=== PATIENT | male | born 1955 | race Caucasian/White ===

== ENCOUNTER 2016-08-04 10:19 | Inpatient (IN) | payer OTHER ==
[~2016-08-04] VITALS: Ht 175.3 cm; Wt 73.1 kg
[~2016-08-04 10:19] MED LIST: ASPI500T19 PO; CARV3.1262 PO; FURO-152 PO; LISI10TA7 PO
[2016-08-04 13:40] LABS: BASOPHILS # (AUTO) 0.02 K/uL (0.00-0.20); BASOPHILS % (AUTO) 0.3 % (0.0-2.0); EOSINOPHILS # (AUTO) 0.06 K/uL (0.00-0.70); EOSINOPHILS % (AUTO) 1.08 % (1.0-6.0); HEMOGLOBIN 14.1 g/dL (13.5-17.5); LYMPHOCYTES # (AUTO) 0.5 K/uL (1.0-4.8); LYMPHOCYTES % (AUTO) 9.1 % (22.0-44.0); MEAN CORPUSCULAR HEMOGLOBIN 29.1 pg (26.0-34.0); MEAN CORPUSCULAR HGB CONC 32.8 G/dL (31.0-37.0); MEAN CORPUSCULAR VOLUME 89 fL (80-100); MONOCYTES # (AUTO) 0.6 K/uL (0.1-1.0); MONOCYTES % (AUTO) 10.4 % (2.0-9.0); NEUTROPHILS # (AUTO) 4.6 K/uL (1.8-7.7); NEUTROPHILS % (AUTO) 79.1 % (40.0-70.0); PLATELET COUNT (AUTO) 247 K/uL (150-450); RED BLOOD CELL COUNT(AUTO) 4.85 MIL/uL (4.50-5.90); RED CELL DISTRIBUTION WIDTH 19.1 % (11.5-14.5); WHITE BLOOD COUNT (AUTO) 5.8 K/uL (4.5-11.0)
[2016-08-04 13:46] LABS: RBC MORPHOLOGY COMMENT ABNORMAL RBC MORPH
[2016-08-04 13:51] LABS: INR 1.4 (0.9-1.1); PROTHROMBIN TIME 14.6 SEC (9.4-11.6)
[2016-08-04 14:00] LABS: ANION GAP 12 mmol/L (8-16); CARBON DIOXIDE 27 mmol/L (22-29); CHLORIDE 99 mmol/L (98-107); GLOMERULAR FILTR. RATE CALC > 60 mL/min (>60); SODIUM SERUM 138 mmol/L (136-145); UREA NITROGEN, BLOOD 18 mg/dL (7-18)
[2016-08-04 14:03] LABS: B-TYPE NATRIURETIC PEPTIDE 1290 pg/mL (0-100)
[2016-08-04 14:26] LABS: ALANINE AMINOTRANSFERASE 31 U/L (12-78); ALBUMIN 2.4 g/dL (3.4-5.0); ASPARTATE AMINOTRANSFERASE 38 U/L (15-37); BILIRUBIN,TOTAL 2.6 mg/dL (0.1-1.0); CREATINE KINASE MB 2.7 ng/mL (0-5); CREATINE KINASE, TOTAL 124 U/L (39-308); TOTAL PROTEIN, SERUM 6.8 g/dL (6.4-8.2)
[2016-08-04] MEDS ORDERED: FUROSEMIDE 40 MG/4 ML VIAL IVP ONE (16:15)
[2016-08-04] MEDS ORDERED: POTASSIUM CHLORIDE 20 MEQ ER TABLET PO ONE ×2 (16:30)
[2016-08-04] MEDS ORDERED: ONDANSETRON HCL 4 MG/2 ML VIAL IVP PRN (16:45)
[2016-08-04] MEDS ORDERED: ACETAMINOPHEN 325 MG TABLET PO PRN (16:45)
[2016-08-04] MEDS ORDERED: 0.9% SODIUM CHLORIDE 10 ML SYRINGE IVP PRN (16:45)
[2016-08-04 17:13] LABS: APPEARANCE,URINE CLEAR (CLEAR); GLUCOSE, URINE (UA) NEGATIVE (NEGATIVE); KETONES,URINE NEGATIVE (NEGATIVE); LEUKOCYTE ESTERASE ,URINE NEGATIVE (NEGATIVE); OCCULT BLOOD,URINE NEGATIVE (NEGATIVE); PROTEIN,URINE NEGATIVE (NEGATIVE)
[2016-08-04 17:15] LABS: ADD UA MICROSCOPIC NO
[2016-08-04 20:18] VITALS: BP 118/73
[2016-08-04 23:25] VITALS: BP 118/69
[2016-08-05] MEDS ORDERED: MORPHINE SULFATE 2 MG/ML SYRINGE IVP PRN
[2016-08-05] MEDS ORDERED: ACETAMINOPHEN 325 MG TABLET PO PRN
[2016-08-05] MEDS ORDERED: HYDROCODONE/ACETAMINOPHEN 5-325 MG TABLET PO PRN
[2016-08-05] MEDS ORDERED: ONDANSETRON HCL 4 MG/2 ML VIAL IVP PRN
[2016-08-05] MEDS: HEPARIN SODIUM,PORCINE 5,000 UNITS/ML VIAL SQ SCH ×4 (03:05→23:10)
[2016-08-05 04:30] VITALS: BP 115/73
[2016-08-05 07:12] VITALS: BP 99/72
[2016-08-05] MEDS: FUROSEMIDE 20 MG/2 ML VIAL IVP SCH ×3 (08:54→21:14)
[2016-08-05] MEDS: LISINOPRIL 20 MG TABLET PO SCH (08:57)
[2016-08-05] MEDS: CARVEDILOL 3.125 MG TABLET PO SCH ×2 (09:09→21:16)
[2016-08-05] MEDS: DOCUSATE SODIUM 100 MG CAPSULE PO SCH ×2 (09:09→21:16)
[2016-08-05] MEDS: PANTOPRAZOLE SODIUM 40 MG/VIAL IVP SCH (09:10)
[2016-08-05 11:13] VITALS: BP 94/74
[2016-08-05 15:24] LABS: BASOPHILS % (AUTO) 1.2 % (0.0-2.0); EOSINOPHILS % (AUTO) 0.9 % (1.0-6.0); HEMATOCRIT 44.1 % (41-53); HEMOGLOBIN 14.1 g/dL (13.5-17.5); LYMPHOCYTES # (AUTO) 0.6 K/uL (1.0-4.8); LYMPHOCYTES % (AUTO) 12.1 % (22.0-44.0); MEAN CORPUSCULAR HEMOGLOBIN 28.6 pg (26.0-34.0); MEAN CORPUSCULAR HGB CONC 31.9 G/dL (31.0-37.0); MEAN CORPUSCULAR VOLUME 90 fL (80-100); MONOCYTES # (AUTO) 0.7 K/uL (0.1-1.0); MONOCYTES % (AUTO) 13.1 % (2.0-9.0); NEUTROPHILS # (AUTO) 3.8 K/uL (1.8-7.7); NEUTROPHILS % (AUTO) 72.7 % (40.0-70.0); PLATELET COUNT (AUTO) 259 K/uL (150-450); RED BLOOD CELL COUNT(AUTO) 4.92 MIL/uL (4.50-5.90); RED CELL DISTRIBUTION WIDTH 18.2 % (11.5-14.5); WHITE BLOOD COUNT (AUTO) 5.3 K/uL (4.5-11.0)
[2016-08-05 16:27] LABS: ANION GAP 14 mmol/L (8-16); CALCIUM, TOTAL 8.4 mg/dL (8.8-10.5); CARBON DIOXIDE 23 mmol/L (22-29); CHLORIDE 99 mmol/L (98-107); CREATININE 1.12 mg/dL (0.60-1.30); GLOMERULAR FILTR. RATE CALC > 60 mL/min (>60); POTASSIUM 3.9 mmol/L (3.5-5.1); SODIUM SERUM 136 mmol/L (136-145); UREA NITROGEN, BLOOD 19 mg/dL (7-18)
[2016-08-05 16:32] LABS: ALANINE AMINOTRANSFERASE 31 U/L (12-78); ALBUMIN 2.3 g/dL (3.4-5.0); ASPARTATE AMINOTRANSFERASE 36 U/L (15-37); BILIRUBIN,TOTAL 2.5 mg/dL (0.1-1.0); TOTAL PROTEIN, SERUM 6.5 g/dL (6.4-8.2)
[2016-08-05 16:36] VITALS: BP 108/68
[2016-08-05] MEDS ORDERED: PHYTONADIONE 10 MG/1 ML AMP SQ ONE (16:45)
[2016-08-05] MEDS: ALBUTEROL SULFATE 2.5 MG/0.5 ML NEB SOLUTION NEB PRN ×2 (17:32→21:37)
[2016-08-05] MEDS: IPRATROPIUM BROMIDE 0.5 MG/2.5 ML NEB SOLUTION NEB PRN ×2 (17:32→21:37)
[2016-08-05] MEDS: ZOLPIDEM TARTRATE 5 MG TABLET PO PRN (23:13)
[2016-08-06] VITALS (7 sets, daily range): BP systolic 100–134; BP diastolic 59–86
[2016-08-06] MEDS: HEPARIN SODIUM,PORCINE 5,000 UNITS/ML VIAL SQ SCH ×2 (08:41→16:00)
[2016-08-06] MEDS: FUROSEMIDE 20 MG/2 ML VIAL IVP SCH ×2 (08:41→20:20)
[2016-08-06] MEDS: PANTOPRAZOLE SODIUM 40 MG/VIAL IVP SCH (08:42)
[2016-08-06] MEDS: CARVEDILOL 3.125 MG TABLET PO SCH ×2 (08:42→20:20)
[2016-08-06] MEDS: DOCUSATE SODIUM 100 MG CAPSULE PO SCH ×3 (08:42→20:20)
[2016-08-06] MEDS: LISINOPRIL 20 MG TABLET PO SCH (08:42)
[2016-08-06] MEDS: ZOLPIDEM TARTRATE 5 MG TABLET PO PRN (21:25)
[2016-08-07 00:05] VITALS: BP 105/68
[2016-08-07 04:56] VITALS: BP 119/76
[2016-08-07 07:17] LABS: ANION GAP 12 mmol/L (8-16); CARBON DIOXIDE 23 mmol/L (22-29); CHLORIDE 97 mmol/L (98-107); CREATININE 1.19 mg/dL (0.60-1.30); GLOMERULAR FILTR. RATE CALC > 60 mL/min (>60); POTASSIUM 4.3 mmol/L (3.5-5.1); SODIUM SERUM 132 mmol/L (136-145); UREA NITROGEN, BLOOD 21 mg/dL (7-18)
[2016-08-07 07:27] LABS: B-TYPE NATRIURETIC PEPTIDE 900 pg/mL (0-100)
[2016-08-07 07:36] VITALS: BP 102/54
[2016-08-07] MEDS: HEPARIN SODIUM,PORCINE 5,000 UNITS/ML VIAL SQ SCH ×3 (08:00→16:00)
[2016-08-07] MEDS: LISINOPRIL 20 MG TABLET PO SCH (09:00)
[2016-08-07] MEDS: CARVEDILOL 3.125 MG TABLET PO SCH (09:00)
[2016-08-07] MEDS ORDERED: ASPIRIN 81 MG EC TABLET PO SCH (09:00)
[2016-08-07] MEDS: FUROSEMIDE 20 MG/2 ML VIAL IVP SCH (11:06)
[2016-08-07] MEDS: PANTOPRAZOLE SODIUM 40 MG/VIAL IVP SCH (11:06)
[2016-08-07] MEDS: DOCUSATE SODIUM 100 MG CAPSULE PO SCH (11:06)
[2016-08-07 11:12] VITALS: BP 116/72
[2016-08-07 12:50] LABS: APPEARANCE,UNSPUN,BODY FLUID CLOUDY (CLEAR); COLOR,BODY FLUID YELLOW (LT YELLOW)
[2016-08-07 12:51] LABS: OTHER CELLS,BODY FLUID MESOTHELIALS
[2016-08-07 15:06] VITALS: BP 111/66
[2016-08-08 17:40] LABS: TOTAL PROTEIN,BODY FLUID,REF 3.2 g/dL
== END 2016-08-07 16:30 | disposition home or self-care (01) | DRG 291 ==
LOC: EMS 10:20 → 5S 17:17
PROVIDERS: ADMIT Hospitalist; ATTEND Hospitalist
PROC: 0W9G3ZZ Drainage of Peritoneal Cavity, Percutaneous Approach (ICD-10-PCS; principal; 2016-08-07)
DX: I50.23 Acute on chronic systolic (congestive) heart failure (principal); E43 Unspecified severe protein-calorie malnutrition; R18.8 Other ascites; I42.9 Cardiomyopathy, unspecified; I11.0 Hypertensive heart disease with heart failure; K74.60 Unspecified cirrhosis of liver; I48.91 Unspecified atrial fibrillation; F15.10 Other stimulant abuse, uncomplicated; F17.210 Nicotine dependence, cigarettes, uncomplicated; I49.9 Cardiac arrhythmia, unspecified; F19.10 Other psychoactive substance abuse, uncomplicated; Z79.899 Other long term (current) drug therapy; Z79.82 Long term (current) use of aspirin; Z68.23 Body mass index [BMI] 23.0-23.9, adult; Z91.19 Patient's noncompliance with other medical treatment and regimen; Z95.810 Presence of automatic (implantable) cardiac defibrillator
CPT/HCPCS: 49083; 76700; 76942; 82042; 82150; 82945; 83615; 84157; 87070; 87205; 89051; 93005; 94640; 96374; 99285; C9113; J1644; J1940; J3430

== ENCOUNTER 2016-09-08 10:35 | Inpatient (IN) | payer OTHER ==
[~2016-09-08] VITALS: Ht 175.3 cm; Wt 73.7 kg
[~2016-09-08 10:35] MED LIST changes: -ASPI500T19 PO
[2016-09-08] MEDS ORDERED: ASPI-1093 PO (10:51)
[2016-09-08] MEDS ORDERED: FOLI1 PO (10:51)
[2016-09-08] MEDS ORDERED: BUME1TAB30 PO (10:51)
[2016-09-08] MEDS ORDERED: AMIO200T44 PO (10:51)
[2016-09-08] MEDS ORDERED: APIX5TAB PO (10:51)
[2016-09-08 11:49] LABS: BASOPHILS % (AUTO) 0.1 % (0.0-2.0); EOSINOPHILS % (AUTO) 1.1 % (1.0-6.0); HEMATOCRIT 40.4 % (41-53); HEMOGLOBIN 12.9 g/dL (13.5-17.5); LYMPHOCYTES # (AUTO) 0.6 K/uL (1.0-4.8); LYMPHOCYTES % (AUTO) 6.9 % (22.0-44.0); MEAN CORPUSCULAR HEMOGLOBIN 28.5 pg (26.0-34.0); MEAN CORPUSCULAR HGB CONC 31.9 G/dL (31.0-37.0); MEAN CORPUSCULAR VOLUME 89 fL (80-100); MONOCYTES # (AUTO) 0.8 K/uL (0.1-1.0); MONOCYTES % (AUTO) 9.5 % (2.0-9.0); NEUTROPHILS # (AUTO) 7.2 K/uL (1.8-7.7); NEUTROPHILS % (AUTO) 82.4 % (40.0-70.0); PLATELET COUNT (AUTO) 334 K/uL (150-450); RED BLOOD CELL COUNT(AUTO) 4.52 MIL/uL (4.50-5.90); RED CELL DISTRIBUTION WIDTH 19.6 % (11.5-14.5); WHITE BLOOD COUNT (AUTO) 8.8 K/uL (4.5-11.0)
[2016-09-08 11:59] LABS: ANION GAP 10 mmol/L (8-16); CALCIUM, TOTAL 8.4 mg/dL (8.8-10.5); CARBON DIOXIDE 25 mmol/L (22-29); CHLORIDE 100 mmol/L (98-107); CREATININE 1.14 mg/dL (0.60-1.30); GLOMERULAR FILTR. RATE CALC > 60 mL/min (>60); SODIUM SERUM 135 mmol/L (136-145); UREA NITROGEN, BLOOD 12 mg/dL (7-18)
[2016-09-08 12:08] LABS: INR 1.2 (0.9-1.1); PROTHROMBIN TIME 12.5 SEC (9.4-11.6)
[2016-09-08 12:10] LABS: B-TYPE NATRIURETIC PEPTIDE 1290 pg/mL (0-100)
[2016-09-08] MEDS ORDERED: FUROSEMIDE 40 MG/4 ML VIAL IVP ONE (12:15)
[2016-09-08 12:22] LABS: RBC MORPHOLOGY COMMENT ABNORMAL RBC MORPH
[2016-09-08 12:25] LABS: ALANINE AMINOTRANSFERASE 28 U/L (12-78); ALBUMIN 2.7 g/dL (3.4-5.0); ASPARTATE AMINOTRANSFERASE 36 U/L (15-37); BILIRUBIN,TOTAL 4.2 mg/dL (0.1-1.0); CREATINE KINASE MB 2.3 ng/mL (0-5); CREATINE KINASE, TOTAL 147 U/L (39-308); TOTAL PROTEIN, SERUM 7.5 g/dL (6.4-8.2)
[2016-09-08] MEDS ORDERED: NITROGLYCERIN 2% (1 GM=INCH) PACKET TP ONE (13:15)
[2016-09-08 14:30] LABS: ADD UA MICROSCOPIC NO; APPEARANCE,URINE CLEAR (CLEAR); GLUCOSE, URINE (UA) NEGATIVE (NEGATIVE); KETONES,URINE NEGATIVE (NEGATIVE); LEUKOCYTE ESTERASE ,URINE NEGATIVE (NEGATIVE); OCCULT BLOOD,URINE NEGATIVE (NEGATIVE); PROTEIN,URINE NEGATIVE (NEGATIVE)
[2016-09-08] MEDS ORDERED: ASPIRIN 81 MG CHEWABLE TABLET PO ONE (15:00)
[2016-09-08 16:18] VITALS: BP 105/76
[2016-09-08] MEDS ORDERED: HYDROCODONE/ACETAMINOPHEN 5-325 MG TABLET PO PRN (16:45)
[2016-09-08] MEDS ORDERED: MAGNESIUM HYDROXIDE SUSPENSION 30 ML UDCUP PO PRN (16:45)
[2016-09-08] MEDS ORDERED: BISACODYL 10 MG RECTAL RECTAL SUPPOSITORY PR PRN (16:45)
[2016-09-08] MEDS ORDERED: ACETAMINOPHEN 325 MG TABLET PO PRN (16:45)
[2016-09-08] MEDS ORDERED: MORPHINE SULFATE 2 MG/ML SYRINGE IVP PRN (16:45)
[2016-09-08] MEDS ORDERED: ZOLPIDEM TARTRATE 5 MG TABLET PO PRN (16:45)
[2016-09-08] MEDS ORDERED: ONDANSETRON HCL 4 MG/2 ML VIAL IVP PRN (16:45)
[2016-09-08 17:37] LABS: INR 1.2 (0.9-1.1); PROTHROMBIN TIME 12.3 SEC (9.4-11.6)
[2016-09-08 18:41] VITALS: BP 120/67
[2016-09-08 19:24] VITALS: BP 119/77
[2016-09-08] MEDS ORDERED: PNEUMOCOCCAL VACCINE POLYVALENT 0.5 ML VIAL [PPSV23] IM ONE (20:15)
[2016-09-08] MEDS: BUMETANIDE 0.25 MG/ML 4 ML VIAL IVP SCH (21:10)
[2016-09-08] MEDS: AMIODARONE HCL 200 MG TABLET PO SCH (21:10)
[2016-09-08] MEDS: CARVEDILOL 3.125 MG TABLET PO SCH (21:10)
[2016-09-08] MEDS: DOCUSATE SODIUM 100 MG CAPSULE PO SCH (21:10)
[2016-09-08 23:36] VITALS: BP 122/72
[2016-09-09] MEDS: HEPARIN SODIUM,PORCINE 5,000 UNITS/ML VIAL SQ SCH ×2 (00:26→08:47)
[2016-09-09 04:20] VITALS: BP 102/70
[2016-09-09 06:57] LABS: BASOPHILS % (AUTO) 0.7 % (0.0-2.0); EOSINOPHILS % (AUTO) 1.5 % (1.0-6.0); HEMATOCRIT 39.5 % (41-53); HEMOGLOBIN 12.5 g/dL (13.5-17.5); LYMPHOCYTES # (AUTO) 0.6 K/uL (1.0-4.8); LYMPHOCYTES % (AUTO) 6.5 % (22.0-44.0); MEAN CORPUSCULAR HEMOGLOBIN 28.7 pg (26.0-34.0); MEAN CORPUSCULAR HGB CONC 31.7 G/dL (31.0-37.0); MEAN CORPUSCULAR VOLUME 90 fL (80-100); MONOCYTES % (AUTO) 10.7 % (2.0-9.0); NEUTROPHILS # (AUTO) 7.3 K/uL (1.8-7.7); NEUTROPHILS % (AUTO) 80.6 % (40.0-70.0); PLATELET COUNT (AUTO) 351 K/uL (150-450); RED BLOOD CELL COUNT(AUTO) 4.37 MIL/uL (4.50-5.90); RED CELL DISTRIBUTION WIDTH 20.6 % (11.5-14.5); WHITE BLOOD COUNT (AUTO) 9.1 K/uL (4.5-11.0)
[2016-09-09 07:05] LABS: ANION GAP 10 mmol/L (8-16); CALCIUM, TOTAL 8.2 mg/dL (8.8-10.5); CARBON DIOXIDE 25 mmol/L (22-29); CHLORIDE 98 mmol/L (98-107); CREATININE 0.94 mg/dL (0.60-1.30); GLOMERULAR FILTR. RATE CALC > 60 mL/min (>60); POTASSIUM 3.6 mmol/L (3.5-5.1); SODIUM SERUM 133 mmol/L (136-145); UREA NITROGEN, BLOOD 13 mg/dL (7-18)
[2016-09-09 07:32] VITALS: BP 129/92
[2016-09-09 08:32] LABS: RBC MORPHOLOGY COMMENT ABNORMAL RBC MORPH
[2016-09-09] MEDS: LISINOPRIL 20 MG TABLET PO SCH (08:47)
[2016-09-09] MEDS: PANTOPRAZOLE SODIUM 40 MG DR TABLET PO SCH (08:47)
[2016-09-09] MEDS: CARVEDILOL 3.125 MG TABLET PO SCH ×2 (08:47→20:32)
[2016-09-09] MEDS: AMIODARONE HCL 200 MG TABLET PO SCH ×2 (08:47→20:33)
[2016-09-09] MEDS: DOCUSATE SODIUM 100 MG CAPSULE PO SCH ×2 (08:47→20:33)
[2016-09-09] MEDS: ASPIRIN 81 MG EC TABLET PO SCH (08:47)
[2016-09-09] MEDS: FOLIC ACID 1 MG TABLET PO SCH (08:48)
[2016-09-09] MEDS: BUMETANIDE 0.25 MG/ML 4 ML VIAL IVP SCH ×2 (08:50→20:34)
[2016-09-09 11:36] VITALS: BP 121/85
[2016-09-09 15:52] VITALS: BP 123/88
[2016-09-09 19:46] VITALS: BP 118/84
[2016-09-09] MEDS: APIXABAN 5 MG TABLET PO SCH (20:32)
[2016-09-09 23:44] VITALS: BP 102/68
[2016-09-10 04:20] VITALS: BP 105/70
[2016-09-10 05:49] LABS: BASOPHILS % (AUTO) 0.6 % (0.0-2.0); HEMATOCRIT 40.2 % (41-53); HEMOGLOBIN 12.9 g/dL (13.5-17.5); LYMPHOCYTES # (AUTO) 0.7 K/uL (1.0-4.8); LYMPHOCYTES % (AUTO) 7.8 % (22.0-44.0); MEAN CORPUSCULAR HEMOGLOBIN 28.8 pg (26.0-34.0); MEAN CORPUSCULAR VOLUME 90 fL (80-100); MONOCYTES # (AUTO) 0.7 K/uL (0.1-1.0); MONOCYTES % (AUTO) 7.5 % (2.0-9.0); NEUTROPHILS # (AUTO) 7.4 K/uL (1.8-7.7); NEUTROPHILS % (AUTO) 83.1 % (40.0-70.0); PLATELET COUNT (AUTO) 363 K/uL (150-450); RED BLOOD CELL COUNT(AUTO) 4.48 MIL/uL (4.50-5.90); RED CELL DISTRIBUTION WIDTH 19.6 % (11.5-14.5)
[2016-09-10 07:05] LABS: RBC MORPHOLOGY COMMENT ABNORMAL RBC MORPH
[2016-09-10 07:07] LABS: CALCIUM, TOTAL 8.3 mg/dL (8.8-10.5); CREATININE 1.28 mg/dL (0.60-1.30); POTASSIUM 3.6 mmol/L (3.5-5.1)
[2016-09-10 08:03] VITALS: BP 114/69
[2016-09-10] MEDS: DOCUSATE SODIUM 100 MG CAPSULE PO SCH (08:03)
[2016-09-10] MEDS: BUMETANIDE 0.25 MG/ML 4 ML VIAL IVP SCH (08:03)
[2016-09-10] MEDS: CARVEDILOL 3.125 MG TABLET PO SCH (08:04)
[2016-09-10] MEDS: FOLIC ACID 1 MG TABLET PO SCH (08:04)
[2016-09-10] MEDS: APIXABAN 5 MG TABLET PO SCH (08:04)
[2016-09-10] MEDS: AMIODARONE HCL 200 MG TABLET PO SCH (08:04)
[2016-09-10] MEDS: ASPIRIN 81 MG EC TABLET PO SCH (08:04)
[2016-09-10] MEDS: PANTOPRAZOLE SODIUM 40 MG DR TABLET PO SCH (08:05)
[2016-09-10] MEDS: LISINOPRIL 20 MG TABLET PO SCH (09:00)
[2016-09-10 11:19] VITALS: BP 107/72
== END 2016-09-10 14:30 | disposition home or self-care (01) | DRG 291 ==
LOC: EMS 10:37 → AHU 15:34 → 5S 17:01
PROVIDERS: ADMIT Internal Medicine; ATTEND Internal Medicine
PROC: 0W9G3ZZ Drainage of Peritoneal Cavity, Percutaneous Approach (ICD-10-PCS; principal; 2016-09-09)
DX: I11.0 Hypertensive heart disease with heart failure (principal); E43 Unspecified severe protein-calorie malnutrition; R18.8 Other ascites; I50.23 Acute on chronic systolic (congestive) heart failure; K74.60 Unspecified cirrhosis of liver; I49.9 Cardiac arrhythmia, unspecified; F15.10 Other stimulant abuse, uncomplicated; I48.91 Unspecified atrial fibrillation; Z28.21 Immunization not carried out because of patient refusal; Z95.810 Presence of automatic (implantable) cardiac defibrillator; Z87.891 Personal history of nicotine dependence; Z79.82 Long term (current) use of aspirin; Z79.899 Other long term (current) drug therapy; Z79.01 Long term (current) use of anticoagulants; Z68.24 Body mass index [BMI] 24.0-24.9, adult
CPT/HCPCS: 49083; 74022; 76700; 76942; 93005; 96374; 99285; G0480; J1644; J1940; J2270; J3490

== ENCOUNTER 2016-10-09 10:40 | Emergency (ER) | payer OTHER ==
[~2016-10-09] VITALS: Ht 175.3 cm; Wt 69.5 kg
[~2016-10-09 10:40] MED LIST changes: +AMIO200T44 PO; +APIX5TAB PO; +ASPI-1093 PO; +BUME1TAB30 PO; +FOLI1 PO
[2016-10-09] MEDS ORDERED: ASPIRIN 81 MG CHEWABLE TABLET PO ONE (11:15)
[2016-10-09 11:43] LABS: BASOPHILS # (AUTO) 0.08 K/uL (0.00-0.20); BASOPHILS % (AUTO) 1.2 % (0.0-2.0); EOSINOPHILS % (AUTO) 1.51 % (1.0-6.0); HEMATOCRIT 36.5 % (41-53); HEMOGLOBIN 12.1 g/dL (13.5-17.5); LYMPHOCYTES # (AUTO) 0.7 K/uL (1.0-4.8); LYMPHOCYTES % (AUTO) 11.2 % (22.0-44.0); MEAN CORPUSCULAR HEMOGLOBIN 30.1 pg (26.0-34.0); MEAN CORPUSCULAR HGB CONC 33.1 G/dL (31.0-37.0); MEAN CORPUSCULAR VOLUME 91 fL (80-100); MONOCYTES # (AUTO) 0.9 K/uL (0.1-1.0); MONOCYTES % (AUTO) 13.3 % (2.0-9.0); NEUTROPHILS # (AUTO) 4.7 K/uL (1.8-7.7); NEUTROPHILS % (AUTO) 72.8 % (40.0-70.0); PLATELET COUNT (AUTO) 290 K/uL (150-450); RED BLOOD CELL COUNT(AUTO) 4.01 MIL/uL (4.50-5.90); RED CELL DISTRIBUTION WIDTH 17.8 % (11.5-14.5); WHITE BLOOD COUNT (AUTO) 6.4 K/uL (4.5-11.0)
[2016-10-09 11:52] LABS: ANION GAP 12 mmol/L (8-16); CALCIUM, TOTAL 8.8 mg/dL (8.8-10.5); CARBON DIOXIDE 26 mmol/L (22-29); CHLORIDE 100 mmol/L (98-107); CREATININE 0.98 mg/dL (0.60-1.30); GLOMERULAR FILTR. RATE CALC > 60 mL/min (>60); POTASSIUM 3.4 mmol/L (3.5-5.1); SODIUM SERUM 138 mmol/L (136-145); UREA NITROGEN, BLOOD 19 mg/dL (7-18)
[2016-10-09 11:58] LABS: ALANINE AMINOTRANSFERASE 21 U/L (12-78); ALBUMIN 2.9 g/dL (3.4-5.0); ASPARTATE AMINOTRANSFERASE 28 U/L (15-37); BILIRUBIN,TOTAL 4.4 mg/dL (0.1-1.0); CREATINE KINASE, TOTAL 72 U/L (39-308); TOTAL PROTEIN, SERUM 7.4 g/dL (6.4-8.2)
[2016-10-09 12:08] LABS: B-TYPE NATRIURETIC PEPTIDE 916 pg/mL (0-100)
[2016-10-09 12:48] VITALS: BP 109/85
[2016-10-09 12:57] LABS: RBC MORPHOLOGY COMMENT ABNORMAL RBC MORPH
== END 2016-10-09 13:25 | disposition home or self-care (01) ==
LOC: EMS 10:41
DX: R07.89 Other chest pain (principal); K74.60 Unspecified cirrhosis of liver; E80.6 Other disorders of bilirubin metabolism; I11.9 Hypertensive heart disease without heart failure; I48.91 Unspecified atrial fibrillation; F15.90 Other stimulant use, unspecified, uncomplicated; F17.210 Nicotine dependence, cigarettes, uncomplicated; Z79.82 Long term (current) use of aspirin
CPT/HCPCS: 93005; 99285

== ENCOUNTER 2016-11-10 19:52 | Inpatient (IN) | payer OTHER ==
[~2016-11-10] VITALS: Ht 172.7 cm; Wt 63.4 kg
[2016-11-10 20:24] LABS: BASOPHILS % (AUTO) 0.9 % (0.0-2.0); EOSINOPHILS % (AUTO) 0.9 % (1.0-6.0); HEMATOCRIT 38.7 % (41-53); HEMOGLOBIN 12.9 g/dL (13.5-17.5); LYMPHOCYTES # (AUTO) 0.5 K/uL (1.0-4.8); LYMPHOCYTES % (AUTO) 6.8 % (22.0-44.0); MEAN CORPUSCULAR HEMOGLOBIN 30.3 pg (26.0-34.0); MEAN CORPUSCULAR HGB CONC 33.3 G/dL (31.0-37.0); MEAN CORPUSCULAR VOLUME 91 fL (80-100); MONOCYTES # (AUTO) 0.6 K/uL (0.1-1.0); MONOCYTES % (AUTO) 8.6 % (2.0-9.0); NEUTROPHILS # (AUTO) 6.1 K/uL (1.8-7.7); NEUTROPHILS % (AUTO) 82.8 % (40.0-70.0); PLATELET COUNT (AUTO) 345 K/uL (150-450); RED BLOOD CELL COUNT(AUTO) 4.26 MIL/uL (4.50-5.90); RED CELL DISTRIBUTION WIDTH 18.5 % (11.5-14.5); WHITE BLOOD COUNT (AUTO) 7.4 K/uL (4.5-11.0)
[2016-11-10 20:35] LABS: ANION GAP 9 mmol/L (8-16); CALCIUM, TOTAL 8.5 mg/dL (8.8-10.5); CARBON DIOXIDE 24 mmol/L (22-29); CHLORIDE 104 mmol/L (98-107); CREATININE 0.93 mg/dL (0.60-1.30); GLOMERULAR FILTR. RATE CALC > 60 mL/min (>60); POTASSIUM 4.1 mmol/L (3.5-5.1); SODIUM SERUM 137 mmol/L (136-145); UREA NITROGEN, BLOOD 8 mg/dL (7-18)
[2016-11-10 20:44] LABS: B-TYPE NATRIURETIC PEPTIDE 1380 pg/mL (0-100); INR 1.2 (0.9-1.1); PROTHROMBIN TIME 12.8 SEC (9.4-11.6)
[2016-11-10 20:45] LABS: TROPONIN I 0.02 ng/mL (0.00-0.05)
[2016-11-10 20:58] LABS: RBC MORPHOLOGY COMMENT ABNORMAL RBC MORPH
[2016-11-10 21:01] LABS: ALANINE AMINOTRANSFERASE 28 U/L (12-78); ALBUMIN 2.5 g/dL (3.4-5.0); ASPARTATE AMINOTRANSFERASE 41 U/L (15-37); BILIRUBIN,TOTAL 3.9 mg/dL (0.1-1.0); CREATINE KINASE MB 3.4 ng/mL (0-5); CREATINE KINASE, TOTAL 273 U/L (39-308); TOTAL PROTEIN, SERUM 6.8 g/dL (6.4-8.2)
[2016-11-10] MEDS ORDERED: ALBUTEROL SULFATE 2.5 MG/0.5 ML NEB SOLUTION NEB ONE (22:15)
[2016-11-10] MEDS ORDERED: 0.9% SODIUM CHLORIDE 5 ML NEB SOLUTION NEB ONE (22:15)
[2016-11-10] MEDS ORDERED: FUROSEMIDE 40 MG/4 ML VIAL IVP ONE (22:30)
[2016-11-10] MEDS ORDERED: NITROGLYCERIN 2% (1 GM=INCH) PACKET TP ONE (22:30)
[2016-11-10 23:11] LABS: APPEARANCE,URINE CLOUDY (CLEAR); GLUCOSE, URINE (UA) NEGATIVE (NEGATIVE); KETONES,URINE NEGATIVE (NEGATIVE); LEUKOCYTE ESTERASE ,URINE NEGATIVE (NEGATIVE); OCCULT BLOOD,URINE NEGATIVE (NEGATIVE); PROTEIN,URINE NEGATIVE (NEGATIVE)
[2016-11-10 23:12] LABS: ADD UA MICROSCOPIC NO
[2016-11-11] VITALS (7 sets, daily range): BP systolic 100–128; BP diastolic 53–87
[2016-11-11] MEDS ORDERED: PNEUMOCOCCAL VACCINE POLYVALENT 0.5 ML VIAL [PPSV23] IM ONE (01:00)
[2016-11-11] MEDS ORDERED: ONDANSETRON HCL 4 MG/2 ML VIAL IVP PRN (03:00)
[2016-11-11] MEDS ORDERED: LEVALBUTEROL HCL 1.25 MG/0.5 ML NEB SOLUTION NEB PRN (03:00)
[2016-11-11] MEDS ORDERED: 0.9% SODIUM CHLORIDE 10 ML SYRINGE IVP PRN (03:00)
[2016-11-11] MEDS ORDERED: IPRATROPIUM BROMIDE 0.5 MG/2.5 ML NEB SOLUTION NEB PRN (03:00)
[2016-11-11 06:32] LABS: ALANINE AMINOTRANSFERASE 26 U/L (12-78); ALBUMIN 2.3 g/dL (3.4-5.0); ANION GAP 10 mmol/L (8-16); ASPARTATE AMINOTRANSFERASE 38 U/L (15-37); BILIRUBIN,TOTAL 4.8 mg/dL (0.1-1.0); CALCIUM, TOTAL 8.4 mg/dL (8.8-10.5); CARBON DIOXIDE 24 mmol/L (22-29); CHLORIDE 103 mmol/L (98-107); CREATININE 0.84 mg/dL (0.60-1.30); GLOMERULAR FILTR. RATE CALC > 60 mL/min (>60); PHOSPHORUS 2.6 mg/dL (2.5-4.9); POTASSIUM 3.2 mmol/L (3.5-5.1); SODIUM SERUM 137 mmol/L (136-145); TOTAL PROTEIN, SERUM 6.5 g/dL (6.4-8.2); UREA NITROGEN, BLOOD 8 mg/dL (7-18)
[2016-11-11 06:33] LABS: AMMONIA 51 umol/L (11-32)
[2016-11-11 06:40] LABS: TROPONIN I < 0.02 ng/mL (0.00-0.05)
[2016-11-11 06:57] LABS: BASOPHILS # (AUTO) 0.04 K/uL (0.00-0.20); BASOPHILS % (AUTO) 0.6 % (0.0-2.0); EOSINOPHILS % (AUTO) 1.42 % (1.0-6.0); HEMATOCRIT 39.3 % (41-53); HEMOGLOBIN 12.9 g/dL (13.5-17.5); LYMPHOCYTES # (AUTO) 0.6 K/uL (1.0-4.8); LYMPHOCYTES % (AUTO) 7.9 % (22.0-44.0); MEAN CORPUSCULAR HEMOGLOBIN 30.2 pg (26.0-34.0); MEAN CORPUSCULAR HGB CONC 32.9 G/dL (31.0-37.0); MEAN CORPUSCULAR VOLUME 92 fL (80-100); MONOCYTES # (AUTO) 0.7 K/uL (0.1-1.0); NEUTROPHILS # (AUTO) 5.9 K/uL (1.8-7.7); NEUTROPHILS % (AUTO) 81.2 % (40.0-70.0); PLATELET COUNT (AUTO) 335 K/uL (150-450); RED BLOOD CELL COUNT(AUTO) 4.29 MIL/uL (4.50-5.90); RED CELL DISTRIBUTION WIDTH 18.4 % (11.5-14.5); WHITE BLOOD COUNT (AUTO) 7.3 K/uL (4.5-11.0)
[2016-11-11] MEDS: LACTULOSE 20 GM/30 ML SOLUTION UDCUP PO SCH ×3 (08:36→20:14)
[2016-11-11] MEDS: FOLIC ACID 1 MG TABLET PO SCH (08:36)
[2016-11-11] MEDS: PANTOPRAZOLE SODIUM 40 MG DR TABLET PO SCH (08:36)
[2016-11-11] MEDS: MULTIVITAMINS, THERAPEUTIC TABLET PO SCH (08:36)
[2016-11-11] MEDS: LISINOPRIL 10 MG TABLET PO SCH (08:36)
[2016-11-11] MEDS: CARVEDILOL 3.125 MG TABLET PO SCH ×2 (08:36→21:00)
[2016-11-11] MEDS: AMIODARONE HCL 200 MG TABLET PO SCH ×2 (08:36→20:14)
[2016-11-11] MEDS: FUROSEMIDE 20 MG/2 ML VIAL IVP SCH ×2 (08:36→20:14)
[2016-11-11] MEDS: ASPIRIN 81 MG CHEWABLE TABLET PO SCH (08:36)
[2016-11-11] MEDS ORDERED: APIXABAN 5 MG TABLET PO SCH (09:00)
[2016-11-11 09:15] LABS: RBC MORPHOLOGY COMMENT ABNORMAL RBC MORPH
[2016-11-11] MEDS ORDERED: POTASSIUM CHLORIDE 20 MEQ ER TABLET PO ONE (15:00)
[2016-11-11] MEDS ORDERED: MAGNESIUM SULFATE 3 GM in DEXTROSE 5%-WATER 100 ML IV ONE (15:00)
[2016-11-11] MEDS ORDERED: SODIUM CHLORIDE 0.9% 250 ML IV ONE (15:56)
[2016-11-12 04:06] VITALS: BP 114/77
[2016-11-12 05:51] LABS: BASOPHILS % (AUTO) 0.4 % (0.0-2.0); EOSINOPHILS % (AUTO) 1.2 % (1.0-6.0); HEMATOCRIT 40.3 % (41-53); HEMOGLOBIN 13.4 g/dL (13.5-17.5); LYMPHOCYTES # (AUTO) 0.5 K/uL (1.0-4.8); LYMPHOCYTES % (AUTO) 5.7 % (22.0-44.0); MEAN CORPUSCULAR HEMOGLOBIN 30.2 pg (26.0-34.0); MEAN CORPUSCULAR HGB CONC 33.2 G/dL (31.0-37.0); MEAN CORPUSCULAR VOLUME 91 fL (80-100); MONOCYTES # (AUTO) 0.8 K/uL (0.1-1.0); MONOCYTES % (AUTO) 8.4 % (2.0-9.0); NEUTROPHILS # (AUTO) 7.7 K/uL (1.8-7.7); NEUTROPHILS % (AUTO) 84.3 % (40.0-70.0); PLATELET COUNT (AUTO) 368 K/uL (150-450); RED BLOOD CELL COUNT(AUTO) 4.43 MIL/uL (4.50-5.90); RED CELL DISTRIBUTION WIDTH 18.2 % (11.5-14.5); WHITE BLOOD COUNT (AUTO) 9.2 K/uL (4.5-11.0)
[2016-11-12 05:55] LABS: INR 1.2 (0.9-1.1); PROTHROMBIN TIME 12.4 SEC (9.4-11.6)
[2016-11-12 06:05] LABS: ALANINE AMINOTRANSFERASE 26 U/L (12-78); ALBUMIN 2.4 g/dL (3.4-5.0); ANION GAP 11 mmol/L (8-16); ASPARTATE AMINOTRANSFERASE 31 U/L (15-37); BILIRUBIN,TOTAL 4.3 mg/dL (0.1-1.0); CALCIUM, TOTAL 8.9 mg/dL (8.8-10.5); CARBON DIOXIDE 23 mmol/L (22-29); CHLORIDE 98 mmol/L (98-107); CREATININE 0.92 mg/dL (0.60-1.30); GLOMERULAR FILTR. RATE CALC > 60 mL/min (>60); POTASSIUM 4.2 mmol/L (3.5-5.1); SODIUM SERUM 132 mmol/L (136-145); TOTAL PROTEIN, SERUM 6.9 g/dL (6.4-8.2); UREA NITROGEN, BLOOD 8 mg/dL (7-18)
[2016-11-12 06:45] LABS: RBC MORPHOLOGY COMMENT ABNORMAL RBC MORPH
[2016-11-12 08:01] VITALS: BP 90/58
[2016-11-12] MEDS ORDERED: HEPARIN SODIUM,PORCINE 5,000 UNITS/ML VIAL IVP PRN ×2 (08:30)
[2016-11-12] MEDS: FUROSEMIDE 20 MG/2 ML VIAL IVP SCH ×2 (08:40→21:00)
[2016-11-12] MEDS: MULTIVITAMINS, THERAPEUTIC TABLET PO SCH (08:41)
[2016-11-12] MEDS: CARVEDILOL 3.125 MG TABLET PO SCH ×2 (08:41→21:00)
[2016-11-12] MEDS: FOLIC ACID 1 MG TABLET PO SCH (08:41)
[2016-11-12] MEDS: LACTULOSE 20 GM/30 ML SOLUTION UDCUP PO SCH ×3 (08:41→21:00)
[2016-11-12] MEDS: LISINOPRIL 10 MG TABLET PO SCH (08:41)
[2016-11-12] MEDS: PANTOPRAZOLE SODIUM 40 MG DR TABLET PO SCH (08:41)
[2016-11-12] MEDS: AMIODARONE HCL 200 MG TABLET PO SCH ×2 (08:44→16:22)
[2016-11-12] MEDS ORDERED: HEPARIN SODIUM,PORCINE 5,000 UNITS/ML VIAL IVP ONE (09:00)
[2016-11-12] MEDS: ASPIRIN 81 MG CHEWABLE TABLET PO SCH (10:54)
[2016-11-12] MEDS: HEPARIN SODIUM 25000 UNITS/D5W 250 ML IV PRN (10:57)
[2016-11-12 11:27] VITALS: BP 106/69
[2016-11-12 15:12] VITALS: BP 101/63
[2016-11-12 19:10] VITALS: BP 99/70
[2016-11-12 23:53] VITALS: BP 98/65
[2016-11-13] VITALS (19 sets, daily range): BP systolic 87–139; BP diastolic 56–100
[2016-11-13 07:51] LABS: BASOPHILS % (AUTO) 0.5 % (0.0-2.0); EOSINOPHILS % (AUTO) 1.5 % (1.0-6.0); HEMOGLOBIN 14.1 g/dL (13.5-17.5); LYMPHOCYTES # (AUTO) 0.7 K/uL (1.0-4.8); LYMPHOCYTES % (AUTO) 8.8 % (22.0-44.0); MEAN CORPUSCULAR HGB CONC 32.8 G/dL (31.0-37.0); MEAN CORPUSCULAR VOLUME 91 fL (80-100); MONOCYTES # (AUTO) 0.6 K/uL (0.1-1.0); MONOCYTES % (AUTO) 7.4 % (2.0-9.0); NEUTROPHILS # (AUTO) 6.7 K/uL (1.8-7.7); NEUTROPHILS % (AUTO) 81.8 % (40.0-70.0); PLATELET COUNT (AUTO) 377 K/uL (150-450); RED BLOOD CELL COUNT(AUTO) 4.71 MIL/uL (4.50-5.90); RED CELL DISTRIBUTION WIDTH 18.7 % (11.5-14.5); WHITE BLOOD COUNT (AUTO) 8.2 K/uL (4.5-11.0)
[2016-11-13] MEDS: AMIODARONE HCL 200 MG TABLET PO SCH ×3 (08:00→16:00)
[2016-11-13 08:06] LABS: ALANINE AMINOTRANSFERASE 30 U/L (12-78); ALBUMIN 2.4 g/dL (3.4-5.0); ANION GAP 9 mmol/L (8-16); ASPARTATE AMINOTRANSFERASE 32 U/L (15-37); BILIRUBIN,TOTAL 3.6 mg/dL (0.1-1.0); CALCIUM, TOTAL 8.8 mg/dL (8.8-10.5); CARBON DIOXIDE 25 mmol/L (22-29); CHLORIDE 99 mmol/L (98-107); CREATININE 1.01 mg/dL (0.60-1.30); GLOMERULAR FILTR. RATE CALC > 60 mL/min (>60); POTASSIUM 4.2 mmol/L (3.5-5.1); SODIUM SERUM 133 mmol/L (136-145); TOTAL PROTEIN, SERUM 7.1 g/dL (6.4-8.2); UREA NITROGEN, BLOOD 8 mg/dL (7-18)
[2016-11-13 08:21] LABS: INR 1.1 (0.9-1.1)
[2016-11-13] MEDS: LACTULOSE 20 GM/30 ML SOLUTION UDCUP PO SCH ×3 (09:00→20:10)
[2016-11-13] MEDS: MULTIVITAMINS, THERAPEUTIC TABLET PO SCH (09:00)
[2016-11-13] MEDS: FUROSEMIDE 20 MG/2 ML VIAL IVP SCH ×2 (09:00→20:20)
[2016-11-13] MEDS: PANTOPRAZOLE SODIUM 40 MG DR TABLET PO SCH (09:00)
[2016-11-13] MEDS: FOLIC ACID 1 MG TABLET PO SCH (09:00)
[2016-11-13] MEDS: ASPIRIN 81 MG CHEWABLE TABLET PO SCH (09:00)
[2016-11-13] MEDS: CARVEDILOL 3.125 MG TABLET PO SCH ×2 (09:00→20:20)
[2016-11-13] MEDS: LISINOPRIL 10 MG TABLET PO SCH (09:00)
[2016-11-13] MEDS ORDERED: FentaNYL CITRATE-PF 100 MCG/2 ML VIAL IVP ONE (12:00)
[2016-11-13] MEDS ORDERED: PROPOFOL 1% 20 ML VIAL IVP ONE (12:00)
[2016-11-13] MEDS ORDERED: MIDAZOLAM HCL 2 MG/2 ML VIAL IVP ONE (12:00)
[2016-11-13 13:11] LABS: RBC MORPHOLOGY COMMENT ABNORMAL RBC MORPH
[2016-11-13] MEDS ORDERED: LIDOCAINE HCL/PF 1% 30 ML VIAL ONE (14:33)
[2016-11-13] MEDS ORDERED: SODIUM CHLORIDE 0.9% 500 ML IV ONE (14:55)
[2016-11-13] MEDS ORDERED: LIDOCAINE HCL/PF 1% 30 ML VIAL INJ ONE (15:00)
[2016-11-13] MEDS ORDERED: BUPIVACAINE LIPOSOME/PF 1.3%-13.3MG/ML SUSPENSION 10 ML VIAL INJ ONE (15:00)
[2016-11-13] MEDS ORDERED: DIGOXIN 250 MCG/ML 2 ML AMP ONE (15:32)
[2016-11-13] MEDS ORDERED: DIGOXIN 250 MCG/ML 2 ML AMP IVP ONE (15:45)
[2016-11-13] MEDS ORDERED: MAGNESIUM OXIDE 400 MG TABLET PO ONE (18:45)
[2016-11-13] MEDS: CeFAZolin 1 GM/DEXTROSE 50 ML IV SCH (20:10)
[2016-11-13] MEDS: HEPARIN SODIUM 25000 UNITS/D5W 250 ML IV PRN (21:56)
[2016-11-14] VITALS (11 sets, daily range): BP systolic 95–110; BP diastolic 55–75
[2016-11-14] MEDS: ACETAMINOPHEN 325 MG TABLET PO PRN ×3 (01:40→16:19)
[2016-11-14] MEDS: CeFAZolin 1 GM/DEXTROSE 50 ML IV SCH ×2 (01:41→08:45)
[2016-11-14] MEDS: HEPARIN SODIUM 25000 UNITS/D5W 250 ML IV PRN ×2 (04:39→12:58)
[2016-11-14] MEDS: FOLIC ACID 1 MG TABLET PO SCH (08:01)
[2016-11-14] MEDS: ASPIRIN 81 MG CHEWABLE TABLET PO SCH (08:01)
[2016-11-14] MEDS: MULTIVITAMINS, THERAPEUTIC TABLET PO SCH (08:01)
[2016-11-14] MEDS: AMIODARONE HCL 200 MG TABLET PO SCH ×3 (08:01→16:19)
[2016-11-14] MEDS: PANTOPRAZOLE SODIUM 40 MG DR TABLET PO SCH (08:01)
[2016-11-14] MEDS: LACTULOSE 20 GM/30 ML SOLUTION UDCUP PO SCH ×3 (08:02→20:31)
[2016-11-14] MEDS: LISINOPRIL 10 MG TABLET PO SCH (08:11)
[2016-11-14] MEDS: FUROSEMIDE 20 MG/2 ML VIAL IVP SCH ×2 (08:11→20:31)
[2016-11-14] MEDS: CARVEDILOL 3.125 MG TABLET PO SCH ×2 (08:11→20:31)
[2016-11-14] MEDS: OxyCODONE HCL/ACETAMINOPHEN 5-325 MG TABLET PO PRN (20:31)
[2016-11-15] VITALS (7 sets, daily range): BP systolic 100–119; BP diastolic 42–78
[2016-11-15] MEDS: AMIODARONE HCL 200 MG TABLET PO SCH ×3 (00:12→15:39)
[2016-11-15] MEDS: MULTIVITAMINS, THERAPEUTIC TABLET PO SCH (08:13)
[2016-11-15] MEDS: PANTOPRAZOLE SODIUM 40 MG DR TABLET PO SCH (08:13)
[2016-11-15] MEDS: LACTULOSE 20 GM/30 ML SOLUTION UDCUP PO SCH ×3 (08:13→20:52)
[2016-11-15] MEDS: FUROSEMIDE 20 MG/2 ML VIAL IVP SCH ×2 (08:14→20:52)
[2016-11-15] MEDS: ASPIRIN 81 MG CHEWABLE TABLET PO SCH (08:14)
[2016-11-15] MEDS: CARVEDILOL 3.125 MG TABLET PO SCH ×2 (08:14→20:52)
[2016-11-15] MEDS: FOLIC ACID 1 MG TABLET PO SCH (08:14)
[2016-11-15] MEDS: LISINOPRIL 10 MG TABLET PO SCH (11:50)
[2016-11-16] MEDS: AMIODARONE HCL 200 MG TABLET PO SCH ×4 (00:22→23:14)
[2016-11-16 04:39] VITALS: BP 113/77
[2016-11-16 07:23] VITALS: BP 103/56
[2016-11-16] MEDS: PANTOPRAZOLE SODIUM 40 MG DR TABLET PO SCH (08:00)
[2016-11-16] MEDS: FOLIC ACID 1 MG TABLET PO SCH (08:02)
[2016-11-16] MEDS: MULTIVITAMINS, THERAPEUTIC TABLET PO SCH (08:02)
[2016-11-16] MEDS: ASPIRIN 81 MG CHEWABLE TABLET PO SCH (08:02)
[2016-11-16] MEDS: LACTULOSE 20 GM/30 ML SOLUTION UDCUP PO SCH ×3 (08:02→20:23)
[2016-11-16] MEDS: OxyCODONE HCL/ACETAMINOPHEN 5-325 MG TABLET PO PRN (08:02)
[2016-11-16] MEDS: FUROSEMIDE 20 MG/2 ML VIAL IVP SCH ×2 (08:02→20:24)
[2016-11-16] MEDS: LISINOPRIL 10 MG TABLET PO SCH (08:04)
[2016-11-16 11:41] VITALS: BP 94/52
[2016-11-16] MEDS: CARVEDILOL 3.125 MG TABLET PO SCH ×2 (11:50→20:22)
[2016-11-16 15:53] VITALS: BP 112/70
[2016-11-16 19:47] VITALS: BP 104/54
[2016-11-16] MEDS: CEPHALEXIN MONOHYDRATE 250 MG CAPSULE PO SCH (20:23)
[2016-11-17 00:40] VITALS: BP 90/58
[2016-11-17 04:55] VITALS: BP 96/66
[2016-11-17 07:48] VITALS: BP 102/42
[2016-11-17] MEDS: LACTULOSE 20 GM/30 ML SOLUTION UDCUP PO SCH ×2 (08:43→16:00)
[2016-11-17] MEDS: AMIODARONE HCL 200 MG TABLET PO SCH (08:44)
[2016-11-17] MEDS: MULTIVITAMINS, THERAPEUTIC TABLET PO SCH (08:44)
[2016-11-17] MEDS: CEPHALEXIN MONOHYDRATE 250 MG CAPSULE PO SCH ×3 (08:44→17:17)
[2016-11-17] MEDS: ASPIRIN 81 MG CHEWABLE TABLET PO SCH (08:44)
[2016-11-17] MEDS: PANTOPRAZOLE SODIUM 40 MG DR TABLET PO SCH (08:44)
[2016-11-17] MEDS: FOLIC ACID 1 MG TABLET PO SCH (08:44)
[2016-11-17] MEDS: CARVEDILOL 3.125 MG TABLET PO SCH (08:44)
[2016-11-17] MEDS: LISINOPRIL 10 MG TABLET PO SCH (08:44)
[2016-11-17] MEDS: FUROSEMIDE 20 MG/2 ML VIAL IVP SCH (08:44)
[2016-11-17] MEDS ORDERED: APIXABAN 5 MG TABLET PO SCH (09:00)
[2016-11-17] MEDS ORDERED: ALBUMIN HUMAN 25%-12.5GM/50ML 50 ML IV ONE ×2 (10:00→12:00)
[2016-11-17 10:54] VITALS: BP 93/57
[2016-11-17] MEDS ORDERED: CEPH500 PO (15:05)
[2016-11-17] MEDS ORDERED: AMIO200T44 PO ×2 (15:08)
[2016-11-17] MEDS ORDERED: ASPI-1093 PO (15:16)
[2016-11-17] MEDS ORDERED: APIX5TAB PO (15:16)
[2016-11-17] MEDS ORDERED: CARV3 PO (15:16)
[2016-11-17] MEDS ORDERED: FOLI1 PO (15:17)
[2016-11-17] MEDS ORDERED: FURO20 PO (15:17)
[2016-11-17] MEDS ORDERED: LISI-662 PO (15:18)
[2016-11-17] MEDS ORDERED: MULT-1192 PO (15:19)
[2016-11-17] MEDS ORDERED: PANT40TA25 PO (15:19)
[2016-11-17 15:28] VITALS: BP 115/53
[2016-11-17 15:36] VITALS: BP 81/51
[2016-11-17] MEDS ORDERED: METOPROLOL SUCCINATE 25 MG ER TABLET PO SCH (21:00)
[2016-11-18] MEDS ORDERED: AMIODARONE HCL 200 MG TABLET PO SCH (09:00)
== END 2016-11-17 18:20 | disposition home or self-care (01) | DRG 226 ==
LOC: EMS 19:54 → 5N 22:30 → 5S 11-14 22:30 → 5N 11-16 20:04
PROVIDERS: ADMIT Internal Medicine; ATTEND Internal Medicine
PROC: 02H63KZ Insertion of Defibrillator Lead into Right Atrium, Percutaneous Approach (ICD-10-PCS; principal; 2016-11-13)
PROC: 02HK3KZ Insertion of Defibrillator Lead into Right Ventricle, Percutaneous Approach (ICD-10-PCS; 2016-11-13)
PROC: 0JH608Z Insertion of Defibrillator Generator into Chest Subcutaneous Tissue and Fascia, Open Approach (ICD-10-PCS; 2016-11-13)
PROC: 0W9G3ZZ Drainage of Peritoneal Cavity, Percutaneous Approach (ICD-10-PCS; 2016-11-13)
PROC: 4B02XTZ Measurement of Cardiac Defibrillator, External Approach (ICD-10-PCS; 2016-11-14)
DX: I11.0 Hypertensive heart disease with heart failure (principal); G93.40 Encephalopathy, unspecified; R18.8 Other ascites; I48.92 Unspecified atrial flutter; J90 Pleural effusion, not elsewhere classified; I50.43 Acute on chronic combined systolic (congestive) and diastolic (congestive) heart failure; I42.0 Dilated cardiomyopathy; K74.60 Unspecified cirrhosis of liver; K72.90 Hepatic failure, unspecified without coma; I48.91 Unspecified atrial fibrillation; E83.42 Hypomagnesemia; E87.6 Hypokalemia; F10.20 Alcohol dependence, uncomplicated; I27.2 Other secondary pulmonary hypertension; I37.1 Nonrheumatic pulmonary valve insufficiency; I48.0 Paroxysmal atrial fibrillation; I48.2 Chronic atrial fibrillation; F17.210 Nicotine dependence, cigarettes, uncomplicated; F19.10 Other psychoactive substance abuse, uncomplicated; Z79.01 Long term (current) use of anticoagulants; Z79.899 Other long term (current) drug therapy
CPT/HCPCS: 33249; 49083; 71020; 76000; 76705; 76942; 80307; 82271; 83735; 84100; 87081; 93005; 93306; 96374; 96375; 97161; 99285; J0690; J1160; J1644; J1940; J2250; J2405; J2704; J3010; J3475; J3490; J7050; J7060

== ENCOUNTER 2017-01-02 07:24 | Emergency (ER) | payer OTHER ==
[~2017-01-02] VITALS: Ht 165.1 cm; Wt 67.0 kg
[~2017-01-02 07:24] MED LIST changes: -ASPI-1093 PO; +ASPI-1182 PO; -BUME1TAB30 PO; +CARV3 PO; -CARV3.1262 PO; +CEPH500 PO; -FURO-152 PO; +FURO20 PO; +LISI-662 PO; -LISI10TA7 PO; +MULT-1192 PO; +PANT40TA25 PO
[2017-01-02 08:01] VITALS: BP 138/96
== END 2017-01-02 10:35 | disposition home or self-care (01) ==
LOC: EMS 07:25
DX: Z76.0 Encounter for issue of repeat prescription (principal); K40.90 Unilateral inguinal hernia, without obstruction or gangrene, not specified as recurrent; I11.9 Hypertensive heart disease without heart failure; I48.91 Unspecified atrial fibrillation; F17.210 Nicotine dependence, cigarettes, uncomplicated; F15.90 Other stimulant use, unspecified, uncomplicated; Z59.0 Homelessness; Z79.82 Long term (current) use of aspirin
CPT/HCPCS: 99283

== ENCOUNTER 2017-01-03 15:49 | Emergency (ER) | payer OTHER ==
[~2017-01-03] VITALS: Ht 175.3 cm; Wt 70.5 kg
[2017-01-03 15:56] VITALS: BP 124/93
== END 2017-01-03 18:35 | disposition left against medical advice (07) ==
LOC: EMS 15:51
DX: Z00.8 Encounter for other general examination (principal); F17.210 Nicotine dependence, cigarettes, uncomplicated; Z53.21 Procedure and treatment not carried out due to patient leaving prior to being seen by health care provider

== ENCOUNTER 2017-02-16 03:30 | Inpatient (IN) | payer OTHER ==
[~2017-02-16] VITALS: Ht 175.3 cm; Wt 79.5 kg
[2017-02-16] MEDS ORDERED: ASPIRIN 81 MG CHEWABLE TABLET PO ONE (03:45)
[2017-02-16 03:59] LABS: BASOPHILS # (AUTO) 0.02 K/uL (0.00-0.20); BASOPHILS % (AUTO) 0.3 % (0.0-2.0); EOSINOPHILS # (AUTO) 0.06 K/uL (0.00-0.70); EOSINOPHILS % (AUTO) 0.85 % (1.0-6.0); HEMATOCRIT 44.5 % (41-53); HEMOGLOBIN 14.6 g/dL (13.5-17.5); LYMPHOCYTES # (AUTO) 0.5 K/uL (1.0-4.8); LYMPHOCYTES % (AUTO) 7.1 % (22.0-44.0); MEAN CORPUSCULAR HEMOGLOBIN 29.4 pg (26.0-34.0); MEAN CORPUSCULAR HGB CONC 32.7 G/dL (31.0-37.0); MEAN CORPUSCULAR VOLUME 90 fL (80-100); MONOCYTES # (AUTO) 0.6 K/uL (0.1-1.0); MONOCYTES % (AUTO) 7.8 % (2.0-9.0); NEUTROPHILS % (AUTO) 83.9 % (40.0-70.0); PLATELET COUNT (AUTO) 251 K/uL (150-450); RED BLOOD CELL COUNT(AUTO) 4.95 MIL/uL (4.50-5.90)
[2017-02-16 04:09] LABS: ANION GAP 10 mmol/L (8-16); CALCIUM, TOTAL 8.7 mg/dL (8.8-10.5); CARBON DIOXIDE 25 mmol/L (22-29); CHLORIDE 104 mmol/L (98-107); CREATININE 0.88 mg/dL (0.60-1.30); GLOMERULAR FILTR. RATE CALC > 60 mL/min (>60); GLUCOSE,RANDOM 145 mg/dL (70-110); POTASSIUM 3.9 mmol/L (3.5-5.1); SODIUM SERUM 139 mmol/L (136-145); UREA NITROGEN, BLOOD 13 mg/dL (7-18)
[2017-02-16 04:20] LABS: B-TYPE NATRIURETIC PEPTIDE 1950 pg/mL (0-100)
[2017-02-16 04:21] LABS: TROPONIN I 0.04 ng/mL (0.00-0.05)
[2017-02-16 04:34] LABS: ALANINE AMINOTRANSFERASE 50 U/L (12-78); ALBUMIN 2.9 g/dL (3.4-5.0); ALKALINE PHOSPHATASE 382 U/L (46-116); ASPARTATE AMINOTRANSFERASE 64 U/L (15-37); BILIRUBIN,TOTAL 3.4 mg/dL (0.1-1.0); CKMB RELATIVE INDEX 1.9 % (0.0-4.0); CREATINE KINASE MB 6.8 ng/mL (0-5); CREATINE KINASE, TOTAL 358 U/L (39-308); LIPASE 218 U/L (73-393); TOTAL PROTEIN, SERUM 7.6 g/dL (6.4-8.2)
[2017-02-16] MEDS ORDERED: FUROSEMIDE 40 MG/4 ML VIAL IVP ONE (05:15)
[2017-02-16 06:36] VITALS: BP 126/91
[2017-02-16 06:39] LABS: APPEARANCE,URINE CLEAR (CLEAR); GLUCOSE, URINE (UA) NEGATIVE (NEGATIVE); KETONES,URINE NEGATIVE (NEGATIVE); LEUKOCYTE ESTERASE ,URINE NEGATIVE (NEGATIVE); NITRATE,URINE NEGATIVE (NEGATIVE); OCCULT BLOOD,URINE TRACE (NEGATIVE); PROTEIN,URINE NEGATIVE (NEGATIVE)
[2017-02-16 06:40] LABS: BILIRUBIN,URINE PRELIM. POSITIVE (NEGATIVE)
[2017-02-16 06:57] LABS: BACTERIA,URINE Rare /HPF (None Seen); CALCIUM OXALATE CRYSTALS,UR Moderate /LPF (None Seen); RBC,URINE 0-2 /HPF (0-2); SQUAMOUS EPITHELIAL CELL,UR Rare /LPF (None Seen); WBC,URINE None Seen /HPF (0-5)
[2017-02-16] MEDS: LACTULOSE 20 GM/30 ML SOLUTION UDCUP PO SCH (09:14)
[2017-02-16] MEDS ORDERED: ALBUTEROL SULFATE 2.5 MG/0.5 ML NEB SOLUTION NEB PRN (09:15)
[2017-02-16] MEDS ORDERED: MAGNESIUM HYDROXIDE SUSPENSION 30 ML UDCUP PO PRN (09:15)
[2017-02-16] MEDS ORDERED: ACETAMINOPHEN 325 MG TABLET PO PRN (09:15)
[2017-02-16] MEDS: LISINOPRIL 5 MG TABLET PO SCH (09:16)
[2017-02-16] MEDS ORDERED: INFLUENZA VIRUS VACCINE QVS 2017-18 (3YR+)/PF 60 MCG/0.5 ML SYRINGE IM ONE (09:30)
[2017-02-16] MEDS ORDERED: PNEUMOCOCCAL VACCINE POLYVALENT 0.5 ML VIAL [PPSV23] IM ONE (09:30)
[2017-02-16 09:35] VITALS: BP 122/88
[2017-02-16] MEDS: MULTIVITAMINS WITH MINERALS, THERAPEUTIC TABLET PO SCH (10:31)
[2017-02-16 11:15] VITALS: BP 126/73
[2017-02-16 15:22] VITALS: BP 134/82
[2017-02-16 20:04] VITALS: BP 103/78
[2017-02-16] MEDS: APIXABAN 5 MG TABLET PO SCH (21:34)
[2017-02-16] MEDS: DOCUSATE SODIUM 100 MG CAPSULE PO SCH (21:34)
[2017-02-16 23:45] VITALS: BP 128/78
[2017-02-16] MEDS: CARVEDILOL 6.25 MG TABLET PO SCH (23:47)
[2017-02-17] VITALS (7 sets, daily range): BP systolic 105–139; BP diastolic 57–89
[2017-02-17] LABS: AMPHET/METH SCREEN,URINE POSITIVE (NEGATIVE); BARBITURATE SCREEN, URINE NEGATIVE (NEGATIVE); BENZODIAZEPINES SCREEN,URINE NEGATIVE (NEGATIVE); CANNABINOID SCREEN,URINE NEGATIVE (NEGATIVE); COCAINE SCREEN,URINE NEGATIVE (NEGATIVE); METHADONE SCREEN, URINE NEGATIVE (NEGATIVE); OPIATE SCREEN,URINE NEGATIVE (NEGATIVE); PHENCYCLIDINE SCREEN,URINE NEGATIVE (NEGATIVE)
[2017-02-17 06:19] LABS: BASOPHILS % (AUTO) 0.4 % (0.0-2.0); EOSINOPHILS % (AUTO) 1.4 % (1.0-6.0); HEMATOCRIT 38.3 % (41-53); HEMOGLOBIN 12.9 g/dL (13.5-17.5); LYMPHOCYTES # (AUTO) 0.4 K/uL (1.0-4.8); LYMPHOCYTES % (AUTO) 5.9 % (22.0-44.0); MEAN CORPUSCULAR HEMOGLOBIN 30.4 pg (26.0-34.0); MEAN CORPUSCULAR HGB CONC 33.8 G/dL (31.0-37.0); MEAN CORPUSCULAR VOLUME 90 fL (80-100); MONOCYTES # (AUTO) 0.5 K/uL (0.1-1.0); MONOCYTES % (AUTO) 7.3 % (2.0-9.0); NEUTROPHILS # (AUTO) 6.2 K/uL (1.8-7.7); PLATELET COUNT (AUTO) 270 K/uL (150-450); RED BLOOD CELL COUNT(AUTO) 4.26 MIL/uL (4.50-5.90); RED CELL DISTRIBUTION WIDTH 16.9 % (11.5-14.5)
[2017-02-17] MEDS: DOCUSATE SODIUM 100 MG CAPSULE PO SCH ×2 (08:03→20:27)
[2017-02-17] MEDS: FUROSEMIDE 40 MG/4 ML VIAL IVP SCH ×2 (08:03→20:27)
[2017-02-17] MEDS: LACTULOSE 20 GM/30 ML SOLUTION UDCUP PO SCH (08:03)
[2017-02-17] MEDS: MULTIVITAMINS WITH MINERALS, THERAPEUTIC TABLET PO SCH (08:04)
[2017-02-17] MEDS: LISINOPRIL 5 MG TABLET PO SCH (08:04)
[2017-02-17] MEDS: APIXABAN 5 MG TABLET PO SCH ×2 (08:04→20:27)
[2017-02-17] MEDS: PANTOPRAZOLE SODIUM 40 MG DR TABLET PO SCH (08:04)
[2017-02-17] MEDS: CARVEDILOL 6.25 MG TABLET PO SCH ×2 (08:05→20:27)
[2017-02-17] MEDS ORDERED: FUROSEMIDE 40 MG/4 ML VIAL IVP SCH (09:00)
[2017-02-17 10:09] LABS: ALANINE AMINOTRANSFERASE 43 U/L (12-78); ALBUMIN 2.6 g/dL (3.4-5.0); ALKALINE PHOSPHATASE 334 U/L (46-116); ANION GAP 10 mmol/L (8-16); ASPARTATE AMINOTRANSFERASE 61 U/L (15-37); BILIRUBIN,TOTAL 2.9 mg/dL (0.1-1.0); CALCIUM, TOTAL 8.2 mg/dL (8.8-10.5); CARBON DIOXIDE 21 mmol/L (22-29); CHLORIDE 101 mmol/L (98-107); CREATININE 0.92 mg/dL (0.60-1.30); GLOMERULAR FILTR. RATE CALC > 60 mL/min (>60); GLUCOSE,RANDOM 107 mg/dL (70-110); SODIUM SERUM 132 mmol/L (136-145); TOTAL PROTEIN, SERUM 6.4 g/dL (6.4-8.2); UREA NITROGEN, BLOOD 11 mg/dL (7-18)
[2017-02-17] MEDS: OxyCODONE HCL/ACETAMINOPHEN 5-325 MG TABLET PO PRN ×2 (15:01→22:44)
[2017-02-18] MEDS: MORPHINE SULFATE 2 MG/ML SYRINGE IVP PRN ×2 (01:00→05:42)
[2017-02-18 03:46] VITALS: BP 118/74
[2017-02-18 06:26] LABS: BASOPHILS % (AUTO) 0.7 % (0.0-2.0); EOSINOPHILS % (AUTO) 1.2 % (1.0-6.0); HEMATOCRIT 38.9 % (41-53); HEMOGLOBIN 13.2 g/dL (13.5-17.5); LYMPHOCYTES # (AUTO) 0.5 K/uL (1.0-4.8); LYMPHOCYTES % (AUTO) 6.6 % (22.0-44.0); MEAN CORPUSCULAR HEMOGLOBIN 30.1 pg (26.0-34.0); MEAN CORPUSCULAR HGB CONC 33.8 G/dL (31.0-37.0); MEAN CORPUSCULAR VOLUME 89 fL (80-100); MONOCYTES # (AUTO) 0.5 K/uL (0.1-1.0); MONOCYTES % (AUTO) 7.2 % (2.0-9.0); NEUTROPHILS % (AUTO) 84.3 % (40.0-70.0); PLATELET COUNT (AUTO) 273 K/uL (150-450); RED BLOOD CELL COUNT(AUTO) 4.37 MIL/uL (4.50-5.90); RED CELL DISTRIBUTION WIDTH 16.4 % (11.5-14.5)
[2017-02-18 06:47] LABS: INR 1.3 (0.9-1.1); PROTHROMBIN TIME 13.4 SEC (9.4-11.6)
[2017-02-18 07:02] LABS: ALANINE AMINOTRANSFERASE 40 U/L (12-78); ALBUMIN 2.6 g/dL (3.4-5.0); ALKALINE PHOSPHATASE 348 U/L (46-116); ANION GAP 8 mmol/L (8-16); ASPARTATE AMINOTRANSFERASE 42 U/L (15-37); BILIRUBIN,TOTAL 4.2 mg/dL (0.1-1.0); CALCIUM, TOTAL 8.5 mg/dL (8.8-10.5); CARBON DIOXIDE 25 mmol/L (22-29); CHLORIDE 97 mmol/L (98-107); CREATININE 0.93 mg/dL (0.60-1.30); GLOMERULAR FILTR. RATE CALC > 60 mL/min (>60); GLUCOSE,RANDOM 104 mg/dL (70-110); POTASSIUM 4.1 mmol/L (3.5-5.1); SODIUM SERUM 130 mmol/L (136-145); TOTAL PROTEIN, SERUM 6.8 g/dL (6.4-8.2); UREA NITROGEN, BLOOD 12 mg/dL (7-18)
[2017-02-18] MEDS: CARVEDILOL 6.25 MG TABLET PO SCH (07:55)
[2017-02-18] MEDS: PANTOPRAZOLE SODIUM 40 MG DR TABLET PO SCH (07:55)
[2017-02-18] MEDS: FUROSEMIDE 40 MG/4 ML VIAL IVP SCH (07:55)
[2017-02-18] MEDS: LACTULOSE 20 GM/30 ML SOLUTION UDCUP PO SCH (07:55)
[2017-02-18] MEDS: MULTIVITAMINS WITH MINERALS, THERAPEUTIC TABLET PO SCH (07:55)
[2017-02-18] MEDS: APIXABAN 5 MG TABLET PO SCH (07:55)
[2017-02-18] MEDS: DOCUSATE SODIUM 100 MG CAPSULE PO SCH (07:55)
[2017-02-18] MEDS: LISINOPRIL 5 MG TABLET PO SCH (07:56)
== END 2017-02-18 14:20 | disposition home or self-care (01) | DRG 292 ==
LOC: EMS 03:32 → 5S 05:19
PROVIDERS: ADMIT Internal Medicine; ATTEND Internal Medicine
DX: I11.0 Hypertensive heart disease with heart failure (principal); E44.0 Moderate protein-calorie malnutrition; R18.8 Other ascites; I07.1 Rheumatic tricuspid insufficiency; K74.60 Unspecified cirrhosis of liver; I48.91 Unspecified atrial fibrillation; F10.20 Alcohol dependence, uncomplicated; I50.23 Acute on chronic systolic (congestive) heart failure; F19.10 Other psychoactive substance abuse, uncomplicated; Z59.0 Homelessness; Z95.810 Presence of automatic (implantable) cardiac defibrillator; Z91.19 Patient's noncompliance with other medical treatment and regimen; K76.9 Liver disease, unspecified; Z28.21 Immunization not carried out because of patient refusal; F17.210 Nicotine dependence, cigarettes, uncomplicated; F15.90 Other stimulant use, unspecified, uncomplicated; Z79.82 Long term (current) use of aspirin; Z79.899 Other long term (current) drug therapy; Z68.25 Body mass index [BMI] 25.0-25.9, adult
CPT/HCPCS: 80307; 83735; 93005; 93306; 96374; 99285; J1940; J2270

== ENCOUNTER 2017-03-11 22:35 | Inpatient (IN) | payer OTHER ==
[~2017-03-11] VITALS: Ht 172.7 cm; Wt 79.6 kg
[~2017-03-11 22:35] MED LIST changes: -CEPH500 PO
[2017-03-11] MEDS: APIXABAN 5 MG TABLET PO SCH (23:00)
[2017-03-12] MEDS ORDERED: CeFAZolin 1 GM/DEXTROSE 50 ML IV ONE (04:00)
[2017-03-12] MEDS ORDERED: SODIUM CHLORIDE 0.9% 1,000 ML IV ONE ×2 (04:15→05:15)
[2017-03-12 04:36] LABS: BASOPHILS # (AUTO) 0.08 K/uL (0.00-0.20); BASOPHILS % (AUTO) 0.7 % (0.0-2.0); EOSINOPHILS % (AUTO) 0.03 % (1.0-6.0); HEMOGLOBIN 13.4 g/dL (13.5-17.5); LYMPHOCYTES # (AUTO) 0.4 K/uL (1.0-4.8); LYMPHOCYTES % (AUTO) 3.2 % (22.0-44.0); MEAN CORPUSCULAR HGB CONC 34.5 G/dL (31.0-37.0); MEAN CORPUSCULAR VOLUME 87 fL (80-100); MONOCYTES # (AUTO) 0.6 K/uL (0.1-1.0); MONOCYTES % (AUTO) 4.9 % (2.0-9.0); NEUTROPHILS # (AUTO) 10.2 K/uL (1.8-7.7); PLATELET COUNT (AUTO) 242 K/uL (150-450); RED BLOOD CELL COUNT(AUTO) 4.48 MIL/uL (4.50-5.90); RED CELL DISTRIBUTION WIDTH 17.5 % (11.5-14.5); WHITE BLOOD COUNT (AUTO) 11.2 K/uL (4.5-11.0)
[2017-03-12 04:37] LABS: NEUTROPHILS % (AUTO) 91.2 % (40.0-70.0)
[2017-03-12 04:44] LABS: ANION GAP 9 mmol/L (8-16); CARBON DIOXIDE 24 mmol/L (22-29); CHLORIDE 98 mmol/L (98-107); CREATININE 0.99 mg/dL (0.60-1.30); GLOMERULAR FILTR. RATE CALC > 60 mL/min (>60); POTASSIUM 4.2 mmol/L (3.5-5.1); SODIUM SERUM 131 mmol/L (136-145); UREA NITROGEN, BLOOD 14 mg/dL (7-18)
[2017-03-12 04:45] LABS: CALCIUM, TOTAL 8.5 mg/dL (8.8-10.5)
[2017-03-12 04:51] LABS: ALANINE AMINOTRANSFERASE 33 U/L (12-78); ALBUMIN 2.5 g/dL (3.4-5.0); ASPARTATE AMINOTRANSFERASE 52 U/L (15-37); BILIRUBIN,TOTAL 10.4 mg/dL (0.1-1.0)
[2017-03-12 04:52] LABS: TROPONIN I 0.05 ng/mL (0.00-0.05)
[2017-03-12 04:53] LABS: LACTIC ACID 2.1 mmol/L (0.4-2.0)
[2017-03-12 05:00] LABS: B-TYPE NATRIURETIC PEPTIDE 2570 pg/mL (0-100)
[2017-03-12] MEDS ORDERED: ACETAMINOPHEN 325 MG TABLET PO PRN ×2 (05:15→16:30)
[2017-03-12] MEDS ORDERED: ONDANSETRON HCL 4 MG/2 ML VIAL IVP PRN ×2 (05:15→16:30)
[2017-03-12] MEDS ORDERED: ASPIRIN 325 MG TABLET PO ONE (05:15)
[2017-03-12] MEDS ORDERED: FUROSEMIDE 40 MG/4 ML VIAL IVP ONE (05:15)
[2017-03-12] MEDS ORDERED: 0.9% SODIUM CHLORIDE 10 ML SYRINGE IVP PRN (05:15)
[2017-03-12 14:28] VITALS: BP 115/74
[2017-03-12] MEDS ORDERED: MORPHINE SULFATE 2 MG/ML SYRINGE IVP PRN (16:30)
[2017-03-12] MEDS ORDERED: ZOLPIDEM TARTRATE 5 MG TABLET PO PRN (16:30)
[2017-03-12] MEDS ORDERED: IPRATROPIUM BROMIDE 0.5 MG/2.5 ML NEB SOLUTION NEB PRN (16:30)
[2017-03-12] MEDS ORDERED: ALBUTEROL SULFATE 2.5 MG/0.5 ML NEB SOLUTION NEB PRN (16:30)
[2017-03-12] MEDS ORDERED: BISACODYL 10 MG RECTAL RECTAL SUPPOSITORY PR PRN (16:30)
[2017-03-12] MEDS ORDERED: MAGNESIUM HYDROXIDE SUSPENSION 30 ML UDCUP PO PRN (16:30)
[2017-03-12 16:34] VITALS: BP 127/89
[2017-03-12] MEDS ORDERED: SODIUM CHLORIDE 0.9% 250 ML IV ONE (18:01)
[2017-03-12] MEDS: CeFAZolin 1 GM/DEXTROSE 50 ML IV SCH (18:02)
[2017-03-12 18:03] VITALS: BP 124/76
[2017-03-12 20:23] VITALS: BP 123/69
[2017-03-12] MEDS: CARVEDILOL 3.125 MG TABLET PO SCH (20:36)
[2017-03-12] MEDS: DOCUSATE SODIUM 100 MG CAPSULE PO SCH (20:36)
[2017-03-12 23:31] VITALS: BP 117/77
[2017-03-13] MEDS: CeFAZolin 1 GM/DEXTROSE 50 ML IV SCH ×3 (01:14→16:51)
[2017-03-13 04:46] VITALS: BP 106/65
[2017-03-13 07:20] VITALS: BP 132/91
[2017-03-13] MEDS ORDERED: PANTOPRAZOLE SODIUM 40 MG DR TABLET PO SCH (09:00)
[2017-03-13] MEDS ORDERED: FUROSEMIDE 20 MG TABLET PO SCH (09:00)
[2017-03-13] MEDS: PANTOPRAZOLE SODIUM 40 MG/VIAL IVP SCH (10:37)
[2017-03-13] MEDS: FUROSEMIDE 40 MG/4 ML VIAL IVP SCH (10:37)
[2017-03-13] MEDS: MULTIVITAMINS, THERAPEUTIC TABLET PO SCH (10:38)
[2017-03-13] MEDS: FOLIC ACID 1 MG TABLET PO SCH (10:38)
[2017-03-13] MEDS: LISINOPRIL 20 MG TABLET PO SCH (10:38)
[2017-03-13] MEDS: ASPIRIN 81 MG EC TABLET PO SCH (10:38)
[2017-03-13] MEDS: APIXABAN 5 MG TABLET PO SCH ×2 (10:38→20:40)
[2017-03-13] MEDS: CARVEDILOL 3.125 MG TABLET PO SCH ×2 (10:38→20:40)
[2017-03-13] MEDS: AMIODARONE HCL 200 MG TABLET PO SCH (10:38)
[2017-03-13] MEDS: DOCUSATE SODIUM 100 MG CAPSULE PO SCH ×2 (10:38→20:40)
[2017-03-13 11:15] VITALS: BP 117/88
[2017-03-13 15:24] VITALS: BP 115/66
[2017-03-13 19:52] VITALS: BP 96/62
[2017-03-13 23:56] VITALS: BP 94/62
[2017-03-14] MEDS: CeFAZolin 1 GM/DEXTROSE 50 ML IV SCH ×3 (00:11→17:23)
[2017-03-14] MEDS: HYDROCODONE/ACETAMINOPHEN 5-325 MG TABLET PO PRN ×2 (00:42→20:37)
[2017-03-14 04:57] VITALS: BP 99/58
[2017-03-14 07:38] VITALS: BP 110/62
[2017-03-14] MEDS: FUROSEMIDE 40 MG/4 ML VIAL IVP SCH ×2 (09:00→09:18)
[2017-03-14] MEDS: APIXABAN 5 MG TABLET PO SCH ×2 (09:17→20:34)
[2017-03-14] MEDS: LISINOPRIL 20 MG TABLET PO SCH (09:17)
[2017-03-14] MEDS: DOCUSATE SODIUM 100 MG CAPSULE PO SCH ×2 (09:17→20:34)
[2017-03-14] MEDS: MULTIVITAMINS, THERAPEUTIC TABLET PO SCH (09:17)
[2017-03-14] MEDS: FOLIC ACID 1 MG TABLET PO SCH (09:18)
[2017-03-14] MEDS: AMIODARONE HCL 200 MG TABLET PO SCH (09:18)
[2017-03-14] MEDS: PANTOPRAZOLE SODIUM 40 MG/VIAL IVP SCH (09:18)
[2017-03-14] MEDS: ASPIRIN 81 MG EC TABLET PO SCH (09:18)
[2017-03-14] MEDS: CARVEDILOL 3.125 MG TABLET PO SCH ×2 (09:18→20:41)
[2017-03-14 11:13] VITALS: BP 102/63
[2017-03-14 13:16] LABS: ANION GAP 10 mmol/L (8-16); CALCIUM, TOTAL 8.1 mg/dL (8.8-10.5); CARBON DIOXIDE 25 mmol/L (22-29); CHLORIDE 97 mmol/L (98-107); CREATININE 1.02 mg/dL (0.60-1.30); GLOMERULAR FILTR. RATE CALC > 60 mL/min (>60); POTASSIUM 4.2 mmol/L (3.5-5.1); SODIUM SERUM 132 mmol/L (136-145); UREA NITROGEN, BLOOD 21 mg/dL (7-18)
[2017-03-14 13:19] LABS: ALANINE AMINOTRANSFERASE 21 U/L (12-78); ALBUMIN 2.1 g/dL (3.4-5.0); ASPARTATE AMINOTRANSFERASE 37 U/L (15-37); BILIRUBIN,TOTAL 6.1 mg/dL (0.1-1.0)
[2017-03-14] MEDS ORDERED: FUROSEMIDE 40 MG TABLET PO ONE (13:30)
[2017-03-14 14:07] LABS: BASOPHILS % (AUTO) 0.2 % (0.0-2.0); EOSINOPHILS % (AUTO) 0.5 % (1.0-6.0); HEMATOCRIT 36.8 % (41-53); HEMOGLOBIN 12.4 g/dL (13.5-17.5); LYMPHOCYTES # (AUTO) 0.3 K/uL (1.0-4.8); LYMPHOCYTES % (AUTO) 4.5 % (22.0-44.0); MEAN CORPUSCULAR HEMOGLOBIN 30.2 pg (26.0-34.0); MEAN CORPUSCULAR HGB CONC 33.6 G/dL (31.0-37.0); MEAN CORPUSCULAR VOLUME 90 fL (80-100); MONOCYTES # (AUTO) 0.6 K/uL (0.1-1.0); MONOCYTES % (AUTO) 8.6 % (2.0-9.0); NEUTROPHILS # (AUTO) 6.3 K/uL (1.8-7.7); NEUTROPHILS % (AUTO) 86.2 % (40.0-70.0); PLATELET COUNT (AUTO) 244 K/uL (150-450); RED CELL DISTRIBUTION WIDTH 17.9 % (11.5-14.5); WHITE BLOOD COUNT (AUTO) 7.4 K/uL (4.5-11.0)
[2017-03-14 14:30] LABS: RBC MORPHOLOGY COMMENT ABNORMAL RBC MORPH
[2017-03-14 19:10] VITALS: BP 93/59
[2017-03-14 23:04] VITALS: BP 109/76
[2017-03-15] MEDS: CeFAZolin 1 GM/DEXTROSE 50 ML IV SCH ×2 (00:22→08:55)
[2017-03-15 04:35] VITALS: BP 117/62
[2017-03-15 07:32] VITALS: BP 102/59
[2017-03-15] MEDS: MULTIVITAMINS, THERAPEUTIC TABLET PO SCH (08:55)
[2017-03-15] MEDS: FOLIC ACID 1 MG TABLET PO SCH (08:55)
[2017-03-15] MEDS: APIXABAN 5 MG TABLET PO SCH (08:55)
[2017-03-15] MEDS: LISINOPRIL 20 MG TABLET PO SCH (08:56)
[2017-03-15] MEDS: ASPIRIN 81 MG EC TABLET PO SCH (08:56)
[2017-03-15] MEDS: AMIODARONE HCL 200 MG TABLET PO SCH (08:56)
[2017-03-15] MEDS: DOCUSATE SODIUM 100 MG CAPSULE PO SCH (08:56)
[2017-03-15] MEDS: CARVEDILOL 3.125 MG TABLET PO SCH (08:56)
[2017-03-15] MEDS: PANTOPRAZOLE SODIUM 40 MG/VIAL IVP SCH (08:56)
[2017-03-15] MEDS: FUROSEMIDE 40 MG/4 ML VIAL IVP SCH (09:00)
[2017-03-15 09:12] LABS: BASOPHILS # (AUTO) 0.01 K/uL (0.00-0.20); BASOPHILS % (AUTO) 0.2 % (0.0-2.0); EOSINOPHILS # (AUTO) 0.03 K/uL (0.00-0.70); EOSINOPHILS % (AUTO) 0.51 % (1.0-6.0); HEMATOCRIT 36.6 % (41-53); HEMOGLOBIN 12.2 g/dL (13.5-17.5); LYMPHOCYTES # (AUTO) 0.3 K/uL (1.0-4.8); LYMPHOCYTES % (AUTO) 3.9 % (22.0-44.0); MEAN CORPUSCULAR HEMOGLOBIN 30.1 pg (26.0-34.0); MEAN CORPUSCULAR HGB CONC 33.4 G/dL (31.0-37.0); MEAN CORPUSCULAR VOLUME 90 fL (80-100); MONOCYTES # (AUTO) 0.6 K/uL (0.1-1.0); MONOCYTES % (AUTO) 9.5 % (2.0-9.0); NEUTROPHILS # (AUTO) 5.5 K/uL (1.8-7.7); PLATELET COUNT (AUTO) 237 K/uL (150-450); RED BLOOD CELL COUNT(AUTO) 4.07 MIL/uL (4.50-5.90); RED CELL DISTRIBUTION WIDTH 17.9 % (11.5-14.5); WHITE BLOOD COUNT (AUTO) 6.4 K/uL (4.5-11.0)
[2017-03-15 09:24] LABS: NEUTROPHILS % (AUTO) 85.9 % (40.0-70.0)
[2017-03-15 09:27] LABS: ALANINE AMINOTRANSFERASE 20 U/L (12-78); ALBUMIN 2.1 g/dL (3.4-5.0); ANION GAP 8 mmol/L (8-16); ASPARTATE AMINOTRANSFERASE 34 U/L (15-37); CALCIUM, TOTAL 7.8 mg/dL (8.8-10.5); CARBON DIOXIDE 26 mmol/L (22-29); CHLORIDE 97 mmol/L (98-107); CREATININE 1.02 mg/dL (0.60-1.30); GLOMERULAR FILTR. RATE CALC > 60 mL/min (>60); SODIUM SERUM 131 mmol/L (136-145); TOTAL PROTEIN, SERUM 6.9 g/dL (6.4-8.2); UREA NITROGEN, BLOOD 21 mg/dL (7-18)
[2017-03-15 10:57] VITALS: BP 106/74
[2017-03-15] MEDS ORDERED: CEPH500 PO ×2 (12:22→12:28)
== END 2017-03-15 14:15 | disposition home or self-care (01) | DRG 602 ==
LOC: EMS 22:36 → UNDOADMIN 03-12 05:00 → 6N 03-12 05:00 → AHU 03-12 13:13 → EMS 03-12 13:29 → 6N 03-12 17:11
PROVIDERS: ADMIT Hospitalist; ATTEND Hospitalist
DX: L03.90 Cellulitis, unspecified (principal); I50.23 Acute on chronic systolic (congestive) heart failure; I11.0 Hypertensive heart disease with heart failure; K74.60 Unspecified cirrhosis of liver; I48.91 Unspecified atrial fibrillation; I49.9 Cardiac arrhythmia, unspecified; F15.90 Other stimulant use, unspecified, uncomplicated; F17.210 Nicotine dependence, cigarettes, uncomplicated; Z86.718 Personal history of other venous thrombosis and embolism; Z59.0 Homelessness; Z91.14 Patient's other noncompliance with medication regimen; Z79.82 Long term (current) use of aspirin; Z79.899 Other long term (current) drug therapy
CPT/HCPCS: 74022; 83605; 87040; 93005; 96365; 96366; 96375; 99291; C9113; J0690; J1940; J7030; J7050

== ENCOUNTER 2017-03-20 16:05 | Emergency (ER) | payer OTHER ==
[~2017-03-20] VITALS: Ht 170.2 cm; Wt 74.0 kg
[~2017-03-20 16:05] MED LIST changes: +CEPH500 PO
[2017-03-20 18:05] LABS: EOSINOPHILS # (AUTO) 0.04 K/uL (0.00-0.70); EOSINOPHILS % (AUTO) 0.53 % (1.0-6.0); HEMATOCRIT 38.7 % (41-53); HEMOGLOBIN 12.9 g/dL (13.5-17.5); LYMPHOCYTES # (AUTO) 0.7 K/uL (1.0-4.8); LYMPHOCYTES % (AUTO) 9.4 % (22.0-44.0); MEAN CORPUSCULAR HEMOGLOBIN 29.6 pg (26.0-34.0); MEAN CORPUSCULAR HGB CONC 33.3 G/dL (31.0-37.0); MEAN CORPUSCULAR VOLUME 89 fL (80-100); MONOCYTES # (AUTO) 0.6 K/uL (0.1-1.0); MONOCYTES % (AUTO) 8.2 % (2.0-9.0); NEUTROPHILS # (AUTO) 6.1 K/uL (1.8-7.7); NEUTROPHILS % (AUTO) 81.8 % (40.0-70.0); PLATELET COUNT (AUTO) 351 K/uL (150-450); RED BLOOD CELL COUNT(AUTO) 4.35 MIL/uL (4.50-5.90); RED CELL DISTRIBUTION WIDTH 18.5 % (11.5-14.5); WHITE BLOOD COUNT (AUTO) 7.4 K/uL (4.5-11.0)
[2017-03-20 18:16] LABS: ANION GAP 10 mmol/L (8-16); CALCIUM, TOTAL 9.2 mg/dL (8.8-10.5); CARBON DIOXIDE 23 mmol/L (22-29); CHLORIDE 100 mmol/L (98-107); CREATININE 1.12 mg/dL (0.60-1.30); GLOMERULAR FILTR. RATE CALC > 60 mL/min (>60); POTASSIUM 4.3 mmol/L (3.5-5.1); SODIUM SERUM 133 mmol/L (136-145); UREA NITROGEN, BLOOD 22 mg/dL (7-18)
[2017-03-20 18:22] LABS: ALANINE AMINOTRANSFERASE 33 U/L (12-78); ALBUMIN 2.5 g/dL (3.4-5.0); ASPARTATE AMINOTRANSFERASE 58 U/L (15-37); BILIRUBIN,TOTAL 5.7 mg/dL (0.1-1.0); TOTAL PROTEIN, SERUM 7.4 g/dL (6.4-8.2)
[2017-03-20 18:23] LABS: TROPONIN I 0.03 ng/mL (0.00-0.05)
[2017-03-20 18:31] LABS: RBC MORPHOLOGY COMMENT ABNORMAL RBC MORPH
[2017-03-20 18:33] LABS: B-TYPE NATRIURETIC PEPTIDE 2200 pg/mL (0-100)
[2017-03-20] MEDS ORDERED: FUROSEMIDE 20 MG TABLET PO ONE (19:00)
[2017-03-20 19:15] VITALS: BP 121/67
== END 2017-03-20 19:15 | disposition home or self-care (01) ==
LOC: EMS 16:07
DX: I11.0 Hypertensive heart disease with heart failure (principal); I50.9 Heart failure, unspecified; R18.8 Other ascites; I48.91 Unspecified atrial fibrillation; F17.210 Nicotine dependence, cigarettes, uncomplicated; F15.90 Other stimulant use, unspecified, uncomplicated; Z79.82 Long term (current) use of aspirin
CPT/HCPCS: 93005; 99285